=== PATIENT | female | born 1990 | race Caucasian/White ===

== ENCOUNTER 2020-08-22 14:09 | Outpatient (CLI) | payer OTHER ==
--- NOTE | 2020-08-22 14:52 | XRAY Report ---
PROCEDURE: Ankle 3 View RT INDICATIONS: RIGHT ANKLE PAIN TECHNIQUE: 3 views of the ankle were acquired. COMPARISON: None FINDINGS: Bones: No fractures or dislocations. Ankle mortise is normally aligned. No suspicious bony lesions . Soft tissues: No tibiotalar joint effusion. Achilles tendon appears normal. IMPRESSION: No acute finding or degenerative changes. Reviewed by: Jhonny Ceron MD on 08/22/2020 2:51 PM PDT Approved by: Jhonny Ceron MD on 08/22/2020 2:51 PM PDT Station ID: [id number]
== END 2020-08-22 23:59 | disposition home or self-care (01) ==
LOC: DI.N 14:09
PROVIDERS: ATTEND Nurse Practitioner
DX: S93.491A Sprain of other ligament of right ankle, initial encounter (principal)

== ENCOUNTER 2022-09-21 09:50 | Outpatient (CLI) | payer BC, OTHER ==
[2022-09-21 10:10] LABS: BASOPHILS # (AUTO) 0.1 10^3/uL (0.0-0.1); BASOPHILS % (AUTO) 0.6 %; EOSINOPHILS # (AUTO) 0.2 10^3/uL (0.0-0.7); HCT - HEMATOCRIT 40.8 % (37.0-47.0); HGB - HEMOGLOBIN 13.1 g/dL (12.0-16.0); LYMPHOCYTES # (AUTO) 2.1 10^3/uL (1.5-3.5); LYMPHOCYTES % (AUTO) 25.4 %; MEAN CORPUSCULAR HGB CONC 32.1 g/dL (32.0-36.0); MEAN CORPUSCULAR VOLUME 90.3 fL (81.0-99.0); MEAN PLATELET VOLUME 9.4 fL (7.9-10.8); MONOCYTES # (AUTO) 0.4 10^3/uL (0.0-1.0); MONOCYTES % (AUTO) 4.9 %; NEUTROPHILS # (AUTO) 5.3 10^3/uL (1.5-6.6); NEUTROPHILS % (AUTO) 65.6 %; PLT - PLATELET COUNT 346 10^3/uL (130-450); RED BLOOD COUNT 4.52 10^6/uL (4.20-5.40); RED CELL DISTRIBUTION WIDTH 12.8 % (12.0-15.0); WHITE BLOOD COUNT 8.1 x10^3/uL (4.8-10.8)
[2022-09-21 10:27] LABS: ALBUMIN/GLOBULIN RATIO 1.3 (1.0-2.2); BILIRUBIN,TOTAL 0.4 mg/dL (0.2-1.0); CALCIUM 8.8 mg/dL (8.5-10.3); CREATININE 0.7 mg/dL (0.4-1.0); POTASSIUM 3.4 mmol/L (3.5-5.0); TOTAL PROTEIN 7.2 g/dL (6.7-8.2)
== END 2022-09-21 09:51 | disposition home or self-care (01) ==
LOC: LAB 09:50
PROVIDERS: ATTEND Nurse Practitioner
DX: L40.0 Psoriasis vulgaris (principal)
CPT/HCPCS: 36415; 80053; 81599; 85025; 86480

== ENCOUNTER 2023-08-23 10:06 | Outpatient (CLI) | payer BC ==
--- NOTE | 2023-08-23 13:13 | SLEEP CARE CONSULTATION ---
Information from patient questionnaire entered by Martha Sy. I have reviewed and concur with the information entered by Martha Sy. This document represents the service I personally performed and the decisions made by me, Marito Prescott MD, [facility]. History of Present Illness Service Date and Time: 08/23/2023 1006 Reason for Visit: New patient Chief Complaint: reports: Unrefreshed sleep, Snoring, Fatigue, Frequent awakenings at night Date of Onset: 10+MONTHS Usual bedtime: 10PM Time it takes to fall asleep: 30-90MINS Snores at night: Yes Observed to quit breathing while asleep: Yes Sleeps alone due to snoring: No Number of times waking at night: 3-8 Reasons for waking at night: reports: Other (UNKNOWN) Toss, Turn, or Twitch while sleeping: Yes Recalls having dreams: Yes Usually gets out of bed at: 6AM Feels refreshed in the morning: No Morning headache: Yes Sleepy or fatigued during the day: Yes Ever fallen asleep while driving: No Takes day naps: No Dreams during day naps: No Prior sleep studies: No Additional HPI information: I have the pleasure of seeing Ms. Perez via video telemedicine ([employer]) today regarding the possibility of her having obstructive sleep apnea. As you know, she is a 33-year-old lady who complains of loud snore and observed apneas. She reports dry mouth in the morning. The patient tells me that she normally goes to bed around 9 11:30 pm, and it takes her approximately 30 - 60 minutes to fall asleep. She took hydroxyzine. She has been told that she snores loudly and irregularly at night. She has also been observed to stop breathing in her sleep. She can recall waking up on the average of 2 - 3 times during the night. Most of the time she wakes up because of unknown reason. She has awakened occasionally because of her own snoring, choking, and having to gasp for air. There is a lot of tossing and turning in her sleep. No somniloquy (sleep talking) or somnambulism (sleep walking). Generally, she can recall having dreams. In the morning she usually gets up out of the bed around 5:45 - 6 a.m. (7:30 on weekends) not feeling refreshed nor rested. She occasionally has a morning headache that goes away after 2 3 hours. During the day she usually does not feel sleepy or fatigued. Her score on [place] Sleepiness Scale is 5 out of 24. She never has fallen asleep while driving nor has had any accident due to sleepiness. She usually does not take naps during the day. She denies having impaired concentration during the day. - Parasomnia Symptoms Ever been unable to move upon waking from sleep: No Walks in sleep: No Talks in sleep: No Ever acted out dreams in sleep: Yes Ever felt weak in the knees when startled or emotional: No Bothered by creepy, crawly, restless sensations in legs: No Problems with memory or concentration: Yes Subjective Initial [place] Sleepiness Scale score: 5 (08/19/23) Past Medical History Past Medical History: reports: Anemia, Anxiety, Other (PSORIASIS, ECZEMA) Social History The patient's occupation is a [employer]. Patient is Single and lives in [place]. Have you smoked in the past 12 months: No Alcohol use: Yes Alcohol amount and frequency: 1-3DRINKS OCCASSIONALLY Caffeine use: Yes Caffeine amount and frequency: 1 DAILY Family History Family history of sleep disordered breathing: Yes Family Hx Sleep Apnea: Mother: Snoring, Father: Snoring, Sleep apnea - Treated, Sibling: Snoring, Grandparent: Snoring, Sleep apnea - Treated Allergies and Home Medications Known drug allergies: Yes (SULFATE MEDICATIONS) Drug allergies reviewed: Yes Home medication list reviewed: Yes Allergy and home medication list: Allergies No Known Drug Allergies Allergy (Verified 08/19/23 14:58) Review of Systems Review of systems same as previous: Yes Weight gain over past 5 years: 30 Weight loss over past 5 years: 5 Cardiovascular: denies: high blood pressure, palpitations, chest pain, irregular heart rate or pulse, leg or foot swelling, have to sleep sitting up, other Respiratory: denies: shortness of breath, wheeze, sputum production, chronic cough, other Gastrointestinal: reports: heartburn Urinary: denies: incontinence, frequency, urgency, impotence, other Neurological: denies: headaches, seizure, head trauma, disorientation, speech dysfunction, gait or balance problems, fainting or unconsciousness, other Psychiatric: reports: anxiety Ear/Nose/Throat: reports: nasal congestion, sinus problems, dry mouth/throat, tonsillectomy, wisdom teeth removed Endocrine: denies: thyroid disease, history of goiter, sluggishness, too hot or cold, excessive thirst, increased appetite, increased urination, unexplained weakness, other Musculoskeletal: denies: joint pain, neck pain, back pain, joint swelling, muscle pain or cramping, mobility problems, other Immunologic: reports: rash, itching Physical Exam Vital signs obtained and entered by: MARTHA Salamanca MA Blood Pressure: 120/77 (LEFT ARM) Cuff size: regular Heart Rate: 84 O2 Saturation: 98 Height: 5 ft 0.25 in Weight: 214 lb Body Mass Index: 41.4 BMI Classification: Morbidly Obese Neck circumference: 15 Mood/affect: Normal Impression and Plan IMPRESSION: 1. Obstructive Sleep Apnea-Hypopnea Syndrome, as evident by history of loud and irregular snoring, observed cessation of breath while asleep, n octurnal choking, unrefreshed sleep, and morning headache. Narrow oropharynx and obesity are common predisposing factors for obstructive sleep apnea-hypopnea syndrome. I recommend proceeding to polysomnography to confirm the diagnosis and to assess severity. I informed the patient of what the sleep studies involve and after some discussion, she agreed to proceed. However, because her insurance is [employer], a home sleep apnea test (HSAT) will be ordered. Plan: 1. Schedule a home sleep apnea test (HSAT). 2. Avoid long distance driving or when feeling sleepy. 3. Avoid alcohol, sedative and muscle relaxant around bedtime. 4. Attempt to lose weight. Counseling Topics: Weight control Follow up with Sleep Care in: 1-2 months Follow up recommended for: Weight management Visit Type: Telehealth Video Video Type: [employer] Patient Location: Office Location of Provider: Other (in airplane) Time Spent with Patient (minutes): 15 Provider Statement: I spent 100% of the Telehealth Video Call with the patient with greater than 50% spent counseling the patient and coordination of care.
[2023-08-23 13:14] VITALS: BP 120/77; O2SAT 98
== END 2023-08-23 10:07 | disposition home or self-care (01) ==
LOC: SC 10:06
PROVIDERS: ATTEND Internal Medicine Pulmonary Disease
DX: R06.83 Snoring (principal); G47.8 Other sleep disorders; R06.81 Apnea, not elsewhere classified

== ENCOUNTER 2023-10-08 13:44 | Outpatient (CLI) | payer BC | END 2023-10-08 13:45 | disposition home or self-care (01) | LOC: SC 13:44 | PROVIDERS: ATTEND Internal Medicine Pulmonary Disease | DX: R09.02 Hypoxemia (principal) | CPT/HCPCS: 95806 ==

== ENCOUNTER 2023-10-25 16:03 | Outpatient (CLI) | payer BC ==
--- NOTE | 2023-10-25 14:58 | SLEEP CARE CONSULTATION ---
Information from patient questionnaire entered by Martha Sy. I have reviewed and concur with the information entered by Martha Sy. This document represents the service I personally performed and the decisions made by me, Marito Prescott MD, [facility]. History of Present Illness Service Date and Time: 10/25/2023 1440 Initial [place] Sleepiness Scale score: 5 (08/19/23) Additional HPI information: Ms. Perez was seen via video telemedicine ([facility]) for follow up of the home sleep apnea test (HSAT) she had on 10/08/2023. The test showed no significant sleep disordered breathing, with an AHI of 4.4/hr and bri SaO2 of 83%. During the study, the patient had 5 apneas (5 obstructive, 0 central, 0 mixed) and 27 hypopneas. The longest episode lasted 71.0 seconds. The few respiratory events occurred almost exclusively during supine sleep (supine AHI was 15.4 and non- supine, 4.05). Hypoxemia was mild, with the lowest oxygen saturation of 83 % and 1.7 minutes with SaO2 under 90%. Baseline oxygen saturation was normal (Average oxygen saturation was 95%). The patient was informed of these findings. I explained to her the test was negative for sleep-related breathing disorder. However, the patient reports lying awake for part of the night. Sleep Study - Results Type of Sleep Study: Home sleep study (COMPLETED 10/08/23) Prior sleep studies: No Allergies and Home Medications Drug allergies reviewed: Yes Home medication list reviewed: Yes Allergy and home medication list: Allergies Sulfa (Sulfonamide Antibiotics) Allergy (Verified 10/21/23 10:21) Review of Systems Review of systems same as previous: Yes Physical Exam Vital signs obtained and entered by: MARTHA Salamanca MA Height: 5 ft 1 in (PER PT) Weight: 185 lb (PER PT) Body Mass Index: 34.9 BMI Classification: Obese Impression and Plan IMPRESSION: 1. Suspected sleep apnea, with equivocal HSAT. I recommend proceeding to an in-laboratory polysomnography, but the patient does not want to at this time. She says she will be out of town a lot these next few months. She will let us know when she can do it. PLAN: 1. Consider an in-laboratory polysomnography. 2. Attempt to lose weight. 3. Avoid sleeping supine. 4. Return for a follow up after the sleep study. Counseling Topics: Weight control Follow up with Sleep Care in: 6 months Follow up recommended for: Weight management Visit Type: Telehealth Video Video Type: D[employer]imity Patient Location: Office Location of Provider: Office Patient agrees and consents to this telehealth visit type: Yes Patient agrees to have their insurance billed: Yes Time Spent with Patient (minutes): 15 Provider Statement: I spent 100% of the Telehealth Video Call with the patient with greater than 50% spent counseling the patient and coordination of care.
== END 2023-10-25 16:04 | disposition home or self-care (01) ==
LOC: SC 16:03
PROVIDERS: ATTEND Internal Medicine Pulmonary Disease
DX: R09.02 Hypoxemia (principal)